=== PATIENT | female | born 1985 | race African-American/Black ===

== ENCOUNTER 2019-03-31 16:35 | Emergency (ER) | payer MEDICAID ==
[~2019-03-31] VITALS: Ht 149.9 cm; Wt 84.1 kg
[2019-03-31 16:43] VITALS: Ht 149.9 cm; Wt 84.1 kg
[2019-03-31] MEDS ORDERED: PRENAVITE1 TAB PO (16:45)
[2019-03-31] MEDS ORDERED: ZOFRAN4 MG PO (16:46)
[2019-03-31 17:15] LABS: APPEARANCE CLEAR (CLEAR); BILIRUBIN NEGATIVE (NEGATIVE); COLOR YELLOW (YELLOW); GLUCOSE NEGATIVE (NEGATIVE); KETONE MODERATE mg/dL (NEGATIVE); NITRITE NEGATIVE (NEGATIVE); PROTEIN NEGATIVE (NEGATIVE); SPECIFIC GRAVITY 1.025 (1.005-1.020); UROBILINOGEN NORMAL (NORMAL)
[2019-03-31 17:17] LABS: BACTERIA MODERATE /hpf (NEGATIVE); EPITHELIAL CELLS 0-5 /hpf (0-5); RED CELLS - URINE OCC /hpf (0-5); WHITE CELLS - URINE OCC /hpf (NEGATIVE)
[2019-03-31 17:25] LABS: BASOPHILS 0.1 % (0-2); EOSINOPHILS 2.9 % (0-7); HEMATOCRIT 37.1 % (36.0-48.0); IMMATURE GRANULOCYTES 0.3 % (0-5); LYMPHOCYTES 27.6 % (15-50); MCH 29.1 pg (26.0-34.0); MCHC 32.3 g/dL (31.0-37.0); MEAN PLATELET VOLUME 12.5 fL (7.4-10.4); MONOCYTES 4.2 % (2-11); NEUTROPHILS 64.9 % (40-80); PLATELET COUNT 191 10x3/uL (130-400); RBC 4.12 10x6/uL (4.00-5.40); RDW 13.1 % (11.5-14.5); WBC 7.6 10x3/uL (4.8-10.8)
[2019-03-31 17:39] LABS: CALC OSMOLALITY 277 mosm/kg (275-300); CALCIUM 9.2 mg/dL (8.5-10.1); CARBON DIOXIDE 24.5 mmol/L (21.0-32.0); CHLORIDE - SERUM 106 mmol/L (98-107); CREATININE - SERUM 0.8 mg/dL (0.6-1.3); GLUCOSE 137 mg/dL (74-106); POTASSIUM - SERUM 3.7 mmol/L (3.5-5.1); SODIUM 139 mmol/L (136-145); UREA NITROGEN 7 mg/dL (7-18); eGFR NON AFRICAN AMERICAN 89 mL/min (90-120)
[2019-03-31 17:43] LABS: ALBUMIN 2.7 g/dL (3.4-5.0); ALKALINE PHOSPHATASE 85 U/L (46-116); ALT (SGPT) 35 U/L (10-68); AMYLASE - SERUM 62 U/L (25-115); BILIRUBIN - TOTAL 0.21 mg/dL (0.2-1.3); LIPASE 137 U/L (73-393)
[2019-03-31 17:51] LABS: TROPONIN-I < 0.017 ng/mL (0.000-0.060)
[2019-03-31] MEDS ORDERED: KEFLEX500 MG PO (18:55)
[2019-03-31] MEDS ORDERED: MACROBID100 MG PO (18:55)
[2019-03-31 19:11] VITALS: BP 136/64
== END 2019-03-31 19:11 | disposition home or self-care (01) ==
LOC: D.ER 16:35
PROVIDERS: Family Medicine
DX: O23.42 Unspecified infection of urinary tract in pregnancy, second trimester (principal); Z3A.15 15 weeks gestation of pregnancy; O99.612 Diseases of the digestive system complicating pregnancy, second trimester; K80.20 Calculus of gallbladder without cholecystitis without obstruction

== ENCOUNTER 2019-04-12 19:57 | Emergency (ER) | payer MEDICAID ==
[~2019-04-12] VITALS: Ht 149.9 cm; Wt 92.1 kg
[~2019-04-12 19:57] MED LIST: KEFLEX500 MG PO; MACROBID100 MG PO; PRENAVITE1 TAB PO; ZOFRAN4 MG PO
[2019-04-12 20:01] VITALS: Ht 149.9 cm; Wt 92.1 kg
[2019-04-12] MEDS ORDERED: AUGMENTIN 875-11 TAB PO (21:33)
[2019-04-12 21:57] VITALS: BP 127/74
== END 2019-04-12 21:57 | disposition home or self-care (01) ==
LOC: D.ER 19:57
DX: O26.892 Other specified pregnancy related conditions, second trimester (principal); Z3A.17 17 weeks gestation of pregnancy; J32.9 Chronic sinusitis, unspecified